=== PATIENT | male | born 1960 | race Hispanic/Latino ===

== ENCOUNTER 2020-08-06 11:52 | Emergency (ER) | payer OTHER ==
[2020-08-06 12:00] VITALS: BP 201/91
--- NOTE | 2020-08-06 12:13 | Emergency Department Report ---
ED Back Pain/Injury HPI - General Chief Complaint: Back Pain/Injury Stated Complaint: WORK INJURY/XRAYS/DOC SENT Time Seen by Provider: 08/06/20 12:01 Source: patient Limitations: No Limitations - History of Present Illness Initial Comments: Patient is a 60-year-old male who presents emergency room with complaints of lower back pain that began 07/31/2020. Patient states that he was lifting at work. 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 He states that there are approximately 100 pounds. He states that he believes he pulled a muscle in his back. He denies any fall. He denies ever injuring his back in the past. He denies any numbness, weakness, bowel or bladder incontinence. He has a past medical history of hypertension and states that he does take blood pressure medication. He states that he does not know the name of his blood pressure medication. He states that he last took it yesterday. He states that he went to his primary care doctor last week and his blood pressure was normal at that time. He states that he just has not taken it yet today but states that he does have blood pressure medication at home. He is not having any symptoms related to his blood pressure. He denies any chest pain, shortness of breath, numbness, weakness, vision changes, headache. - Related Data Previous Rx's Medication Instructions Recorded Last Taken Type Acetaminophen [Tylenol] 650 mg PO Q8HR PRN #20 capsule 08/06/20 Unknown Rx Meloxicam [Mobic] 15 mg PO DAILY PRN #10 tablet 08/06/20 Unknown Rx Allergies Allergy/AdvReac Type Severity Reaction Status Date / Time No Known Allergies Allergy Unverified 08/06/20 11:56 ED Review of Systems ROS: Stated complaint: WORK INJURY/XRAYS/DOC SENT Other details as noted in HPI Comment: All other systems reviewed and negative ED Past Medical Hx - Past Medical History Previous Medical History?: No - Surgical History Past Surgical History?: No - Social History Smoking Status: Never Smoker Substance Use Type: None - Medications Home Medications: Home Medications Medication Instructions Recorded Confirmed Last Taken Type Acetaminophen [Tylenol] 650 mg PO Q8HR PRN #20 capsule 08/06/20 Unknown Rx Meloxicam [Mobic] 15 mg PO DAILY PRN #10 tablet 08/06/20 Unknown Rx ED Physical Exam - General Limitations: No Limitations General appearance: alert, in no apparent distress - Head Head exam: Present: atraumatic, normocephalic - Eye Eye exam: Present: normal appearance - ENT ENT exam: Present: mucous membranes moist - Neck Neck exam: Present: normal inspection, full ROM. Absent: tenderness - Respiratory Respiratory exam: Present: normal lung sounds bilaterally. Absent: respiratory distress, wheezes, rales, rhonchi, stridor, chest wall tenderness, accessory muscle use, decreased breath sounds, prolonged expiratory - Cardiovascular Cardiovascular Exam: Present: regular rate, normal rhythm, normal heart sounds. Absent: systolic murmur, diastolic murmur, rubs, gallop - Back Exam Back exam: Present: normal inspection, full ROM, paraspinal tenderness (left sided paraspinal L-spine ttp, no midline C-spine, T-spine or L-spine ttp, no step offs, no deformities ). Absent: vertebral tenderness - Neurological Exam Neurological exam: Present: alert, oriented X3, CN II-XII intact, normal gait. Absent: motor sensory deficit - Psychiatric Psychiatric exam: Present: normal affect, normal mood - Skin Skin exam: Present: warm, dry, intact ED Course Vital Signs 08/06/20 11:57 Temperature 98 F Pulse Rate 64 Respiratory 16 Rate Blood Pressure 201/91 [Right] O2 Sat by Pulse 100 Oximetry ED Medical Decision Making - Lab Data Vital Signs 08/06/20 11:57 Temperature 98 F Pulse Rate 64 Respiratory 16 Rate Blood Pressure 201/91 [Right] O2 Sat by Pulse 100 Oximetry - Radiology Data Radiology results: report reviewed Ordering Physician: MAME SHAFER Date of Service: 08/06/20 Procedure(s): XR spine lumbosacral 2-3V Accession Number(s): [id number] cc: MAME SHAFER Fluoro Time In Minutes: LUMBAR SPINE 3 VIEWS INDICATION / CLINICAL INFORMATION: low back pain after heavy lifting. COMPARISON: None available. FINDINGS: Mild diffuse degenerative change. No other significant skeletal abnormality. Alignment is normal. Signer Name: Sid Angel MD FACR Signed: 08/06/2020 12:45 PM Workstation Name: [id number] Transcribed By: MS Dictated By: Sid Angel MD Electronically Authenticated By: Sid Angel MD Signed Date/Time: 08/06/20 2085 DD/ 1244 TD/TT: - Medical Decision Making Patient is a 60-year-old male who presents emergency room with complaints of lower back pain that began 07/31/2020. Patient states that he was lifting at work. 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 He states that there are approximately 100 pounds. He states that he believes he pulled a muscle in his back. He denies any fall. He denies ever injuring his back in the past. He denies any numbness, weakness, bowel or bladder incontinence. He has a past medical history of hypertension and states that he does take blood pressure medication. He states that he does not know the name of his blood pressure medication. He states that he last took it yesterday. He states that he went to his primary care doctor last week and his blood pressure was normal at that time. He states that he just has not taken it yet today but states that he does have blood pressure medication at home. He is not having any symptoms related to his blood pressure. He denies any chest pain, shortness of breath, numbness, weakness, vision changes, headache. vitals With elevated blood pressure, otherwise vitals are normal. On repeat blood pressure is 193/70. Patient is not having any symptoms related to his blood pressure, he states he does have his blood pressure medication at home. The up-to-date medical literature does not recommend emergently lowering asymptomatic blood pressure. XR lumbar spine: Mild diffuse degenerative change. No other significant skeletal abnormality. Alignment is normal. Patient has no red flag warning signs of back pain, no trauma, no unexplained weight loss, no neuro deficits, no fever, no IV drug use, no steroid use, no history of cancer. Discussed all results with patient and answered questions. Patient given prescription for Mobic and Tylenol. Advised patient Please take medication as prescribed as needed. May use ice pack, heating pad, rest, Epson salt bath. Follow-up with your primary care doctor for reexamination. Return to emergency room for any new or worsening symptoms. - Differential Diagnosis Strain, sprain, fracture, dislocation, DDD, bulging disc, spondylosis Critical care attestation.: If time is entered above; I have spent that time in minutes in the direct care of this critically ill patient, excluding procedure time. ED Disposition Clinical Impression: Low back strain Qualifiers: Encounter type: initial encounter Qualified Code(s): S39.012A - Strain of muscle, fascia and tendon of lower back, initial encounter Degenerative arthritis of lumbar spine Qualifiers: Spinal osteoarthritis complication: unspecified spinal osteoarthritis Qualified Code(s): M47.816 - Spondylosis without myelopathy or radiculopathy, lumbar region Disposition: TO HOME OR SELFCARE Is pt being admited?: No Does the pt Need Aspirin: No Condition: Stable Instructions: Lumbar Strain Additional Instructions: Please take medication as prescribed as needed. May use ice pack, heating pad, rest, Epson salt bath. Follow-up with your primary care doctor for reexamination. Return to emergency room for any new or worsening symptoms. Prescriptions: Meloxicam [Mobic] 15 mg PO DAILY PRN #10 tablet PRN Reason: pain Acetaminophen [Tylenol] 650 mg PO Q8HR PRN #20 capsule PRN Reason: pain Referrals: DAIJA GILL,[facility] [Other] - 2-3 Days Time of Disposition: 13:21 Print Language: DOMINICAN
--- NOTE | 2020-08-06 12:50 | XRay Report ---
LUMBAR SPINE 3 VIEWS INDICATION / CLINICAL INFORMATION: low back pain after heavy lifting. COMPARISON: None available. FINDINGS: Mild diffuse degenerative change. No other significant skeletal abnormality. Alignment is normal. Signer Name: Sid Angel MD FACR Signed: 08/06/2020 12:45 PM Workstation Name: [id number]
== END 2020-08-06 13:47 | disposition home or self-care (01) ==
LOC: ED 11:52
DX: S39.012A Strain of muscle, fascia and tendon of lower back, initial encounter (principal); M47.816 Spondylosis without myelopathy or radiculopathy, lumbar region; Z79.899 Other long term (current) drug therapy; X50.0XXA Overexertion from strenuous movement or load, initial encounter; X50.9XXA Other and unspecified overexertion or strenuous movements or postures, initial encounter; Y93.89 Activity, other specified; Y92.89 Other specified places as the place of occurrence of the external cause; Y99.0 Civilian activity done for income or pay
CPT/HCPCS: 72100